=== PATIENT | male | born 1960 | race Caucasian/White ===

== ENCOUNTER 2018-08-08 13:38 | Emergency (ER) | payer OTHER ==
[~2018-08-08] VITALS: Ht 170.2 cm; Wt 80.7 kg
[2018-08-08 13:42] VITALS: Ht 170.2 cm; Wt 80.7 kg
[2018-08-08 16:38] VITALS: BP 118/83
== END 2018-08-08 17:14 | disposition home or self-care (01) ==
LOC: ED 13:38
DX: J98.01 Acute bronchospasm (principal); J02.9 Acute pharyngitis, unspecified; R07.89 Other chest pain
CPT/HCPCS: 87804; J2930; J7613; J7644

== ENCOUNTER 2018-08-19 16:08 | Emergency (ER) | payer OTHER ==
[~2018-08-19] VITALS: Ht 167.6 cm; Wt 82.1 kg
[2018-08-19 16:31] VITALS: Ht 167.6 cm; Wt 82.1 kg
[2018-08-19 19:47] VITALS: BP 129/79
== END 2018-08-19 19:47 | disposition home or self-care (01) ==
LOC: ED 16:08
DX: K64.8 Other hemorrhoids (principal)